=== PATIENT | female | born 1950 | race Caucasian/White ===

== ENCOUNTER 2016-09-01 16:26 | Observation (INO) | payer MEDICARE, OTHER ==
--- NOTE | 2016-09-01 16:56 | C.PDOC ---
History Of Present Illness 65 y/o female pmhx HTN sent by Dr. Jones for evaluation of high blood pressure. Pt saw Dr Jones today with complaints of left sided chest pressure and SOB. Pt blood pressure in office was 160/110, Robert sent patient to ED for further evaluation, requesting evaluation by Dr Whyte. Denies abdominal pain, weakness, numbness or any other complaints. Time Seen by Provider: 09/01/16 16:38 Chief Complaint (Nursing): Chest Pain History Per: Patient History/Exam Limitations: no limitations Onset/Duration Of Symptoms: Days Current Symptoms Are (Timing): Still Present Severity: Moderate Quality: Pressure Modifying Factors: None Alleviating Factors: None Recent travel outside of the [place]: No Past Medical History Reviewed: Historical Data, Nursing Documentation, Vital Signs Vital Signs: Last Vital Signs Temp 97.8 F 09/01/16 16:31 Pulse 66 09/01/16 18:27 Resp 18 09/01/16 18:27 BP 174/72 H 09/01/16 18:27 Pulse Ox 100 09/01/16 18:27 - Medical History PMH: Arthritis, HTN, Hyperlipidemia, Osteoporosis Surgical History: Appendectomy, Cholecystectomy Family History: States: Unknown Family Hx - Social History Hx Alcohol Use: No Hx Substance Use: No - Immunization History Hx Tetanus Toxoid Vaccination: No Hx Influenza Vaccination: No Hx Pneumococcal Vaccination: No Review Of Systems Except As Marked, All Systems Reviewed And Found Negative. Constitutional: Negative for: Fever, Chills Cardiovascular: Positive for: Chest Pain. Negative for: Palpitations Respiratory: Positive for: Shortness of Breath Gastrointestinal: Negative for: Vomiting, Abdominal Pain Neurological: Negative for: Weakness, Numbness Physical Exam - Physical Exam Appears: Non-toxic, No Acute Distress Skin: Warm, Dry, No Rash Head: Atraumatic, Normacephalic Chest: Symmetrical, No Tenderness Cardiovascular: Rhythm Regular, No Murmur Respiratory: Normal Breath Sounds, No Accessory Muscle Use, No Rales, No Rhonchi , No Wheezing Gastrointestinal/Abdominal: Normal Exam, Soft, No Tenderness Extremity: Normal ROM, No Pedal Edema Extremity: Bilateral: Atraumatic Pulses: Left Dorsalis Pedis: Normal, Right Dorsalis Pedis: Normal Neurological/Psych: Oriented x3, Normal Speech, Normal Cognition ED Course And Treatment - Laboratory Results Result Diagrams: 09/01/16 17:04 09/01/16 17:04 O2 Sat by Pulse Oximetry: 97 (room air) Pulse Ox Interpretation: Normal Medical Decision Making Medical Decision Making: Plan: labs, CXR, aspirin 6:19PM EKG shows NSR at 76bpm with left atrial enlargement. Cxray concerning for widened mediastinum. Trop x 1 negative. Presentation atypical for dissection but due to xray and elevated BP, will get CTA. On reevaluation, patient reports that she is now pain free and patient has equal pulses b/l. 7:00PM Will sign out to [place] to follow-up CT dissection study and reevaluate patient Disposition - Disposition Disposition: HOSPITALIZED Disposition Time: 18:33 Condition: FAIR - Clinical Impression Clinical Impression: Chest pain - Scribe Statement The provider has reviewed the documentation as recorded by the Melissa Vogt Provider Attestation: All medical record entries made by the Melissa were at my direction and personally dictated by me. I have reviewed the chart and agree that the record accurately reflects my personal performance of the history, physical exam, medical decision making, and the department course for this patient. I have also personally directed, reviewed, and agree with the discharge instructions and disposition.
[2016-09-01 17:09] LABS: BASO # 0.1 K/uL (0.0-0.2); EOS # 0.1 K/uL (0.0-0.7); EOS % 0.8 % (0.0-4.0); HEMATOCRIT 44.9 % (34.0-47.0); LYMPH # 3.2 K/uL (1.0-4.3); LYMPH % 39.4 % (20.0-40.0); MEAN CELL VOLUME 91.9 fL (81.0-99.0); MEAN CORPUSCULAR HEMOGLOBIN 30.9 pg (27.0-31.0); MEAN CORPUSCULAR HGB CONC 33.6 g/dL (33.0-37.0); MONO # 0.3 K/uL (0.0-0.8); MONO % 3.9 % (0.0-10.0); RED CELL DISTRIBUTION WIDTH 13.2 % (11.5-14.5); WHITE BLOOD COUNT 8.1 K/uL (4.8-10.8)
[2016-09-01 17:23] LABS: ALB/GLOB RATIO 1.3 (1.0-2.1); ALKALINE PHOSPHATASE 142 U/L (38-126); ALT/SGPT 33 U/L (9-52); AST/SGOT 23 U/L (14-36); BLOOD UREA NITROGEN 11 mg/dL (7-17); CALCIUM 10.1 mg/dl (8.6-10.4); CARBON DIOXIDE 25 mmol/L (22-30); GFR AFRICAN-AMERICAN > 60; GLUCOSE,RANDOM 94 mg/dL (65-105); TOTAL PROTEIN 7.8 g/dL (6.3-8.3)
[2016-09-01 17:32] LABS: CHLORIDE 98 mmol/L (98-107); POTASSIUM 4.1 mmol/L (3.6-5.2); SODIUM 140 mmol/L (132-148)
[2016-09-01] MEDS ORDERED: Iodixanol 320 MG/ML 100 ML BOTTLE IV ONE (18:31)
--- NOTE | 2016-09-01 19:19 | CT ---
EXAM: CT Chest Without and With Intravenous Contrast CT Abdomen and Pelvis Without and With Intravenous Contrast CLINICAL HISTORY: 65 years old, female; Pain; Other: Chest; Chest pain; Type not specified; Additional info: Eval for dissection, elevated BP, chest pain TECHNIQUE: Axial computed tomography images of the chest, abdomen and pelvis without and with intravenous contrast during the arterial phase of enhancement. This CT exam was performed using one or more of the following dose reduction techniques: automated exposure control, adjustment of the mA and/or kV according to patient size, and/or use of iterative reconstruction technique. Coronal and sagittal reformatted images were created and reviewed. CONTRAST: 50 mL of visipaque 320 administered intravenously. COMPARISON: No relevant prior studies available. FINDINGS: VASCULATURE: Aorta: No acute findings. No aortic aneurysm. No dissection. Pulmonary arteries: Unremarkable as visualized. No pulmonary embolism is identified. Great vessels of aortic arch: No acute findings. No dissection. No arterial occlusion or significant stenosis. Celiac trunk and mesenteric arteries: No acute findings. No occlusion or significant stenosis. Renal arteries: No acute findings. No occlusion or significant stenosis. Iliac arteries: No acute findings. No occlusion or significant stenosis. CHEST: Lungs: There is mild bronchiectasis in the right middle lobe. Pleural space: Unremarkable. No significant effusion. No pneumothorax. Heart: Unremarkable. No cardiomegaly. No significant pericardial effusion. Mediastinum: . There is a moderate to large paraesophageal hiatal hernia. ABDOMEN: Liver: There are numerous low density lesions are noted within the liver. The largest measures 1.1 cm in the right lobe near the dome the density measurement of 15 H. Gallbladder and bile ducts: Surgical clips are seen in the gallbladder fossa. No calcified stones. No ductal dilation. Pancreas: Unremarkable. No ductal dilation. No mass. Spleen: Unremarkable. No splenomegaly. Adrenals: Unremarkable. No mass. Kidneys and ureters: There are numerous (too many to count) low density lesions noted within both kidneys. No obstructing stones. No hydronephrosis. Stomach and bowel: Not seen as a separate structure. No inflammatory changes seen at the base of the cecum. No mucosal thickening. Appendix: No findings to suggest acute appendicitis. PELVIS: Bladder: Unremarkable. No stones. No mass. Reproductive: Unremarkable as visualized. CHEST, ABDOMEN and PELVIS: Intraperitoneal space: Unremarkable. No significant fluid collection. No free air. Bones/joints: There is a mild dextroscoliosis of the thoracic spine No acute fracture. No dislocation. Soft tissues: Unremarkable. Lymph nodes: Unremarkable. No enlarged lymph nodes. Other findings: IMPRESSION: 1. No acute findings. No aortic dissection. 2. Numerous low density lesions noted within the liver and kidneys. They're not all fully characterized due to the large number of small size. The largest appear to BE cysts. 3. Moderate to large paraesophageal hiatal hernia. 4. Mild bronchiectasis in the right middle lobe. EXAM: CT Abdomen and Pelvis With Intravenous Contrast CLINICAL HISTORY: 65 years old, female; Pain; Other: Chest; Chest pain; Type not specified; Additional info: Eval for dissection, elevated BP, chest pain TECHNIQUE: Axial computed tomography images of the abdomen and pelvis with intravenous contrast. This CT exam was performed using one or more of the following dose reduction techniques: automated exposure control, adjustment of the mA and/or kV according to patient size, and/or use of iterative reconstruction technique. Coronal and sagittal reformatted images were created and reviewed. CONTRAST: 50 mL of visipaque 320 administered intravenously. EXAM DATE/TIME: Exam ordered 09/01/2016 6:14 PM COMPARISON: CR - CHEST PORTABLE 09/01/2016 4:49:35 PM FINDINGS: Lower thorax: There is a moderate to large paraesophageal hiatal hernia ABDOMEN: Liver: There are numerous low density lesions are noted within the liver. The largest measures 1.1 cm in the right lobe near the dome the density measurement of 15 H. Gallbladder and bile ducts: Surgical clips are seen in the gallbladder fossa. The common bile that measures 8 mm. No calcified stones. No ductal dilation. Pancreas: Unremarkable. No mass. No ductal dilation. Spleen: Unremarkable. No splenomegaly. Adrenals: Unremarkable. No mass. Kidneys and ureters: There are numerous (too many to count) low density lesions noted within both kidneys. No hydronephrosis. Stomach and bowel: Unremarkable. No obstruction. No mucosal thickening. Appendix: Not seen a separate structure. No inflammatory changes at the base of cecum. PELVIS: Bladder: Unremarkable. No mass. Reproductive: The uterus is absent. The ovaries are not seen as separate structures. ABDOMEN and PELVIS: Intraperitoneal space: Unremarkable. No free air. No significant fluid collection. Bones/joints: An area of sclerosis in the right ilium is noted.. No dislocation. Soft tissues: Unremarkable. Vasculature: Unremarkable. No abdominal aortic aneurysm. Lymph nodes: Unremarkable. No enlarged lymph nodes. IMPRESSION: 1. No acute findings. No aortic dissection. 2. Moderate to large paraesophageal hiatal hernia 3. Numerous low-density lesions within the liver and kidneys. They're not all fully characterized due to their small size and large number. The largest appear to BE cysts. 4. 1 cm sclerotic lesion noted within the right ilium. The appearance is nonspecific. Comparison with CT from 03/23/2014 would be helpful. Was not available at the time the study was interpreted.
[2016-09-02] MEDS: Pantoprazole 40 mg EC Tab PO SCH (09:12)
[2016-09-02] MEDS: Enoxaparin 40 mg Syringe SC SCH (09:13)
--- NOTE | 2016-09-02 09:17 | RAD ---
HISTORY: chest pain COMPARISON: No prior. FINDINGS: LUNGS: The lungs are well inflated and clear. PLEURA: No significant pleural effusion identified, no pneumothorax apparent. CARDIOVASCULAR: Normal. OSSEOUS STRUCTURES: No significant abnormalities. VISUALIZED UPPER ABDOMEN: Normal. OTHER FINDINGS: None. IMPRESSION: No active pulmonary disease.
--- NOTE | 2016-09-02 10:28 | CP.PCM.CON ---
<Toi Foreman - Last Filed: 09/02/16 10:31> History of Present Illness - History of Present Illness History of Present Illness: Cardiology consult note Attending: Dr. Whyte This is a 65 yo female with past medical hx of HTN, HLD, arthritis, osteoporosis , gout presenting with chief complaint high blood pressure/chest pain. Pt states she was seeing her PMD Dr. Naranjo this past wednesday. Her BP at his office was noted to be 200/100. She says she was told to go see Dr. Jones, her packager, on wednesday. She went to see Dr. Jones and again was noted to have high blood pressure, this time systolic in the 160s. Her son was with her and took her to [facility]. She also reports substernal chest pain x2 days. It sometimes radiates to left arm. It is a pressure sensation. It comes and goes. She says she has it currently at a mild level. She says she has never had this before. When asked what medications she takes, she did not know any of the names. She says she relies on her daughter to give her the medications and she will sometimes miss doses. No fevers, chills, vomiting, diarrhea, sob, syncope. PMH: HTN, HLD, arthritis, osteoporosis, gout PSH: appendectomy, cholecystectomy, removal of tumor from left shoulder Allergies: NKDA FH: Grandfather and grandmother with [place] Social hx: No smoking, drinking, or drug use. Born in [place]. Review of Systems - Review of Systems All systems: reviewed and no additional remarkable complaints except Review of Systems: negative except per HPI. Past Patient History - Infectious Disease Hx of Infectious Diseases: None - Tetanus Immunizations Tetanus Immunization: Unknown - Past Medical History & Family History Past Medical History?: Yes - Past Social History Smoking Status: Never Smoked Chewing Tobacco Use: No Cigar Use: No Alcohol: None Drugs: Denies Home Situation {Lives}: With Family Domestic Violence: Negative - CARDIAC Hx Cardiac Disorders: Yes Hx Angina: No Hx Atrial Fibrillation: No Hx Cardia Arrhythmia: No Hx Circulatory Problems: No Hx Congestive Heart Failure: No Hx Heart Attack: No Hx Heart Murmur: No Hx Heart Transplant: No Hx Hypercholesterolemia: No Hx Hypertension: Yes Hx Hypotension: No Hx Internal Defibrillator: No Hx Mitral Valve Prolapse: No Hx Pacemaker: No Hx Peripheral Edema: No Hx Peripheral Vascular Disease: No - PULMONARY Hx Respiratory Disorders: No - NEUROLOGICAL Hx Neurological Disorder: No - HEENT Hx HEENT Problems: No - RENAL Hx Chronic Kidney Disease: No - ENDOCRINE/METABOLIC Hx Endocrine Disorders: No - HEMATOLOGICAL/ONCOLOGICAL Hx Blood Disorders: No - INTEGUMENTARY Hx Dermatological Problems: No - MUSCULOSKELETAL/RHEUMATOLOGICAL Hx Falls: No - GASTROINTESTINAL Hx Gastrointestinal Disorders: Yes Hx Bowel Surgery: No Hx Clostridium Difficile: No Hx Colitis: No Hx Colostomy: No Hx Constipation: No Hx Crohn's Disease: No Hx Diarrhea: No Hx Diverticulitis: No Hx Esophageal Varices: No Hx Fatty Liver Disease: No Hx Gall Bladder Disease: Yes Hx Gastritis: No Hx Gastroesophageal Reflux: No Hx Hemorrhoids: No Hx Ileostomy: No Hx Irritable Bowel: No Hx Liver Failure: No Hx Nausea: No Hx Pancreatitis: No HX Swallowing Problems: No Hx Ulcer: No Hx Vomiting: No - GENITOURINARY/GYNECOLOGICAL Hx Genitourinary Disorders: No - PSYCHIATRIC Hx Substance Use: No - SURGICAL HISTORY Hx Surgeries: Yes Hx Abdominal Aortic Aneurysm Repair: No Hx Amputation: No Hx Angiogram: No Hx Angioplasty: No Hx Appendectomy: Yes Hx Arteriovenous Shunt: No Hx Arthroscopy: No Hx Bile Duct Stent: No Hx Breast Biopsy: No Hx Cataract Extraction: No Hx Cardiac Catheterization: No Hx Carotid Endarterectomy: No Hx Section: No Hx Cholecystectomy: Yes Hx Coronary Artery Bypass Graft: No Hx Coronary Stent: No Hx Dilation and Curettage: No Hx Eye Surgery: No Hx Femoral-Popliteal Bypass Graft: No Hx Gastric Bypass Surgery: No Hx Herniorrhaphy: No Hx Hysterectomy: No Hx Joint Replacement: No Hx Kidney Transplant: No Hx Liver Transplant: No Hx Mastectomy: No Hx Musculoskeletal Surgery: No Hx Open Heart Surgery: No Hx Open Reduction Internal Fixation: No Hx Orthopedic Surgery: No Hx Parathyroidectomy: No Hx Penile Implant: No Hx Pulmonary Surgery: No Hx Splenectomy: No Hx Thyroidectomy: No Hx Tonsillectomy: No Hx Tubal Ligation: No Hx Valve Replacement: No Hx Vascular Surgery: No Hx Vascular Access Device: No - ANESTHESIA Hx Anesthesia: Yes Hx Anesthesia Reactions: No Hx Malignant Hyperthermia: No Has any member of the family had a problem w/ anesthesia?: No Meds Allergies/Adverse Reactions: Allergies Allergy/AdvReac Type Severity Reaction Status Date / Time No Known Allergies Allergy Verified 09/01/16 16:33 - Medications Medications: Current Medications Amlodipine Besylate (Norvasc) 5 mg PO DAILY [facility] Last Admin: 09/02/16 09:12 Dose: 5 mg Aspirin (Aspirin) 81 mg PO DAILY [facility] Enoxaparin Sodium (Lovenox) 40 mg SC DAILY [facility] Last Admin: 09/02/16 09:13 Dose: 40 mg Metoprolol Tartrate (Lopressor) 50 mg PO Q12 [facility] Last Admin: 09/02/16 09:12 Dose: 50 mg Pantoprazole Sodium (Protonix Ec Tab) 40 mg PO DAILY [facility] Last Admin: 09/02/16 09:12 Dose: 40 mg Rosuvastatin Calcium (Crestor) 40 mg PO [facility] Physical Exam - Constitutional Appears: Non-toxic, No Acute Distress - Head Exam Head Exam: ATRAUMATIC, NORMAL INSPECTION, NORMOCEPHALIC - Eye Exam Eye Exam: EOMI - ENT Exam ENT Exam: Mucous Membranes Moist - Neck Exam Neck exam: Positive for: Full Rom, Normal Inspection - Respiratory Exam Respiratory Exam: Chest Wall Tenderness, NORMAL BREATHING PATTERN. absent: Respiratory Distress - Cardiovascular Exam Cardiovascular Exam: +S1, +S2 - GI/Abdominal Exam GI & Abdominal Exam: Normal Bowel Sounds, Soft. absent: Tenderness - Extremities Exam Extremities exam: Positive for: full ROM, normal inspection - Back Exam Back exam: NORMAL INSPECTION - Neurological Exam Neurological exam: Alert, Oriented x3 - Psychiatric Exam Psychiatric exam: Normal Affect, Normal Mood - Skin Skin Exam: Dry, Intact, Normal Color, Warm Results - Vital Signs Recent Vital Signs: Last Vital Signs Temp 97.7 F 09/02/16 07:53 Pulse 64 09/02/16 07:53 Resp 18 09/02/16 07:53 BP 129/79 09/02/16 07:53 Pulse Ox 97 09/02/16 07:53 - Labs Result Diagrams: 09/01/16 17:04 09/01/16 17:04 Labs: Laboratory Results - last 24 hr 09/02/16 09/02/16 00:38 06:35 Total Creatine Kinase 71 64 CK-MB (Mass) 1.79 1.52 Troponin I, Quant < 0.0120 < 0.0120 Assessment & Plan - Assessment and Plan (Free Text) Assessment: This is a 65 yo female with past medical hx of HTN, HLD, arthritis, osteoporosis , gout presenting with HTN and chest pain. A/P -asa 81 mg po daily -amlodopine 5 mg po daily -lovenox 40 daily -lopressor 50 q 12 -protonix 40 daily -crestor 40 po hs -trops negative x 3 -initial ekg was NSR at 76 bpm -CXR- wide mediastinum -CT angio negative for dissection -ekg this morning sinus stephanie at 59 -bp well controlled today -continue current management discussed with Dr. Whyte <Bertha Whyte - Last Filed: 09/11/16 12:52> Results - Vital Signs Recent Vital Signs: Last Vital Signs Temp 98.0 F 09/03/16 07:30 Pulse 62 09/03/16 07:30 Resp 18 09/03/16 07:30 BP 109/66 09/03/16 07:30 Pulse Ox 97 09/03/16 07:30 - Labs Result Diagrams: 09/01/16 17:04 09/01/16 17:04 Attending/Attestation - Attestation I have personally seen and examined this patient.: Yes I have fully participated in the care of the patient.: Yes I have reviewed all pertinent clinical information: Yes Notes (Text): 09/11/16 12:51 will get fire dispatcher to see how pt is taking meds. Meds responding to bp in hospital
--- NOTE | 2016-09-02 13:09 | CP.PCM.HP ---
History of Present Illness - History of Present Illness History of Present Illness: This is a 65 yo female with past medical hx of HTN, HLD, arthritis, osteoporosis , gout presenting with chief complaint high blood pressure/chest pain. Pt states she was seeing her PMD Dr. Naranjo this past wednesday. Her BP at his office was noted to be 200/100. She says she was told to go see Dr. Jones, her sas programmer, on wednesday. She went to see Dr. Jones and again was noted to have high blood pressure, this time systolic in the 160s. Her son was with her and took her to [facility]. She also reports substernal chest pain x2 days. It sometimes radiates to left arm. It is a pressure sensation. It comes and goes. She says she has it currently at a mild level. She says she has never had this before. When asked what medications she takes, she did not know any of the names. She says she relies on her daughter to give her the medications and she will sometimes miss doses. No fevers, chills, vomiting, diarrhea, sob, syncope. Present on Admission - Present on Admission Any Indicators Present on Admission: No History of DVT/PE: No History of Uncontrolled Diabetes: No Urinary Catheter: No Decubitus Ulcer Present: No Review of Systems - Review of Systems All systems: reviewed and no additional remarkable complaints except (As mentioned in HPI) Past Patient History - Infectious Disease Hx of Infectious Diseases: None - Tetanus Immunizations Tetanus Immunization: Unknown - Past Medical History & Family History Past Medical History?: Yes - Past Social History Smoking Status: Never Smoked Chewing Tobacco Use: No Cigar Use: No Alcohol: None Drugs: Denies Home Situation {Lives}: With Family Domestic Violence: Negative - CARDIAC Hx Cardiac Disorders: Yes Hx Angina: No Hx Atrial Fibrillation: No Hx Cardia Arrhythmia: No Hx Circulatory Problems: No Hx Congestive Heart Failure: No Hx Heart Attack: No Hx Heart Murmur: No Hx Heart Transplant: No Hx Hypercholesterolemia: No Hx Hypertension: Yes Hx Hypotension: No Hx Internal Defibrillator: No Hx Mitral Valve Prolapse: No Hx Pacemaker: No Hx Peripheral Edema: No Hx Peripheral Vascular Disease: No - PULMONARY Hx Respiratory Disorders: No - NEUROLOGICAL Hx Neurological Disorder: No - HEENT Hx HEENT Problems: No - RENAL Hx Chronic Kidney Disease: No - ENDOCRINE/METABOLIC Hx Endocrine Disorders: No - HEMATOLOGICAL/ONCOLOGICAL Hx Blood Disorders: No - INTEGUMENTARY Hx Dermatological Problems: No - MUSCULOSKELETAL/RHEUMATOLOGICAL Hx Falls: No - GASTROINTESTINAL Hx Gastrointestinal Disorders: Yes Hx Bowel Surgery: No Hx Clostridium Difficile: No Hx Colitis: No Hx Colostomy: No Hx Constipation: No Hx Crohn's Disease: No Hx Diarrhea: No Hx Diverticulitis: No Hx Esophageal Varices: No Hx Fatty Liver Disease: No Hx Gall Bladder Disease: Yes Hx Gastritis: No Hx Gastroesophageal Reflux: No Hx Hemorrhoids: No Hx Ileostomy: No Hx Irritable Bowel: No Hx Liver Failure: No Hx Nausea: No Hx Pancreatitis: No HX Swallowing Problems: No Hx Ulcer: No Hx Vomiting: No - GENITOURINARY/GYNECOLOGICAL Hx Genitourinary Disorders: No - PSYCHIATRIC Hx Substance Use: No - SURGICAL HISTORY Hx Surgeries: Yes Hx Abdominal Aortic Aneurysm Repair: No Hx Amputation: No Hx Angiogram: No Hx Angioplasty: No Hx Appendectomy: Yes Hx Arteriovenous Shunt: No Hx Arthroscopy: No Hx Bile Duct Stent: No Hx Breast Biopsy: No Hx Cataract Extraction: No Hx Cardiac Catheterization: No Hx Carotid Endarterectomy: No Hx Section: No Hx Cholecystectomy: Yes Hx Coronary Artery Bypass Graft: No Hx Coronary Stent: No Hx Dilation and Curettage: No Hx Eye Surgery: No Hx Femoral-Popliteal Bypass Graft: No Hx Gastric Bypass Surgery: No Hx Herniorrhaphy: No Hx Hysterectomy: No Hx Joint Replacement: No Hx Kidney Transplant: No Hx Liver Transplant: No Hx Mastectomy: No Hx Musculoskeletal Surgery: No Hx Open Heart Surgery: No Hx Open Reduction Internal Fixation: No Hx Orthopedic Surgery: No Hx Parathyroidectomy: No Hx Penile Implant: No Hx Pulmonary Surgery: No Hx Splenectomy: No Hx Thyroidectomy: No Hx Tonsillectomy: No Hx Tubal Ligation: No Hx Valve Replacement: No Hx Vascular Surgery: No Hx Vascular Access Device: No - ANESTHESIA Hx Anesthesia: Yes Hx Anesthesia Reactions: No Hx Malignant Hyperthermia: No Has any member of the family had a problem w/ anesthesia?: No Meds Allergies/Adverse Reactions: Allergies Allergy/AdvReac Type Severity Reaction Status Date / Time No Known Allergies Allergy Verified 09/01/16 16:33 Physical Exam - Eye Exam Eye Exam: Normal appearance - ENT Exam ENT Exam: Mucous Membranes Moist - Respiratory Exam Respiratory Exam: Clear to Auscultation Bilateral - Cardiovascular Exam Cardiovascular Exam: REGULAR RHYTHM, +S1, +S2 - GI/Abdominal Exam GI & Abdominal Exam: Normal Bowel Sounds, Soft - Extremities Exam Extremities exam: Positive for: normal inspection Results - Vital Signs Recent Vital Signs: Last Vital Signs Temp 97.7 F 09/02/16 07:53 Pulse 64 09/02/16 07:53 Resp 18 09/02/16 07:53 BP 129/79 09/02/16 07:53 Pulse Ox 97 09/02/16 07:53 - Labs Result Diagrams: 09/01/16 17:04 09/01/16 17:04 Labs: Laboratory Results - last 24 hr 09/02/16 09/02/16 00:38 06:35 Total Creatine Kinase 71 64 CK-MB (Mass) 1.79 1.52 Troponin I, Quant < 0.0120 < 0.0120 Assessment & Plan - Assessment and Plan (Free Text) Assessment: Hypertensive urgency Chest pain Asthma Admit to telemetry Lopressor 50 mg p.o. every 12 hours Norvasc 5 mg daily Cardiology consult appreciated Cardiac enzymes 3 sets DC planning once cleared by cardiology We will follow patient in office for asthma DVT GI prophylaxis
[2016-09-03 08:47] VITALS: BP 109/66; PULSE 62; RESP 18; TEMP 98; O2SAT 97
[2016-09-03] MEDS: Pantoprazole 40 mg EC Tab PO SCH (09:42)
[2016-09-03] MEDS: Enoxaparin 40 mg Syringe SC SCH (09:43)
--- NOTE | 2016-09-03 12:46 | CP.PCM.PN ---
Subjective - Date & Time of Evaluation Date of Evaluation: 09/03/16 Time of Evaluation: 12:46 - Subjective Subjective: PT CLEARED FOR D/C BY DR. CANSECO. ALL D/C INSTRUCTIONS DISCUSSED AT LENGTH WITH THE PT. ALL MEDS DISCUSSED WITH THE PT. PT TO F/U WITH DR. CANSECO AND DR. ARMIJO. NO FURTHER ORDERS. Objective - Vital Signs/Intake and Output Vital Signs (last 24 hours): Temp Pulse Resp BP Pulse Ox 98.0 F 62 18 109/66 97 09/03/16 07:30 09/03/16 07:30 09/03/16 07:30 09/03/16 07:30 09/03/16 07:30 - Medications Medications: Current Medications Amlodipine Besylate (Norvasc) 5 mg PO DAILY [facility] Last Admin: 09/03/16 09:42 Dose: 5 mg Aspirin (Aspirin) 81 mg PO DAILY [facility] Last Admin: 09/03/16 09:44 Dose: 81 mg Enoxaparin Sodium (Lovenox) 40 mg SC DAILY [facility] Last Admin: 09/03/16 09:43 Dose: 40 mg Metoprolol Tartrate (Lopressor) 50 mg PO Q12 [facility] Last Admin: 09/03/16 09:43 Dose: 50 mg Pantoprazole Sodium (Protonix Ec Tab) 40 mg PO DAILY [facility] Last Admin: 09/03/16 09:42 Dose: 40 mg Rosuvastatin Calcium (Crestor) 40 mg PO HS [facility] Last Admin: 09/02/16 21:23 Dose: 40 mg - Labs Labs: PT 11.6 SECONDS (9.7-12.2) 09/01/16 17:04 INR 1.0 09/01/16 17:04 APTT 36 SECONDS (21-34) H 09/01/16 17:04
--- NOTE | 2016-09-03 15:26 | CP.PCM.PN ---
<Toi Foreman - Last Filed: 09/03/16 15:23> Subjective - Date & Time of Evaluation Date of Evaluation: 09/03/16 Time of Evaluation: 15:20 - Subjective Subjective: Cardiology progress note. Attending: Dr. Whyte Pt seen and examined at bedside. No acute distress. No events overnight. BP much better controlled. No fevers, chills, chest pain, sob, vomiting, diarrhea. Objective - Vital Signs/Intake and Output Vital Signs (last 24 hours): Temp Pulse Resp BP Pulse Ox 98.0 F 62 18 109/66 97 09/03/16 07:30 09/03/16 07:30 09/03/16 07:30 09/03/16 07:30 09/03/16 07:30 - Labs Labs: PT 11.6 SECONDS (9.7-12.2) 09/01/16 17:04 INR 1.0 09/01/16 17:04 APTT 36 SECONDS (21-34) H 09/01/16 17:04 - Constitutional Appears: Non-toxic, No Acute Distress - Head Exam Head Exam: ATRAUMATIC, NORMAL INSPECTION, NORMOCEPHALIC - Eye Exam Eye Exam: EOMI - ENT Exam ENT Exam: Mucous Membranes Moist - Neck Exam Neck Exam: Full ROM, Normal Inspection - Respiratory Exam Respiratory Exam: NORMAL BREATHING PATTERN. absent: Respiratory Distress - Cardiovascular Exam Cardiovascular Exam: +S1, +S2 - GI/Abdominal Exam GI & Abdominal Exam: Soft, Normal Bowel Sounds. absent: Tenderness - Extremities Exam Extremities Exam: Full ROM, Normal Inspection - Back Exam Back Exam: NORMAL INSPECTION - Neurological Exam Neurological Exam: Alert, Awake, Oriented x3 - Psychiatric Exam Psychiatric exam: Normal Affect, Normal Mood - Skin Skin Exam: Dry, Intact, Normal Color, Warm <Bertha Whyte - Last Filed: 09/11/16 12:51> Objective - Vital Signs/Intake and Output Vital Signs (last 24 hours): Temp Pulse Resp BP Pulse Ox 98.0 F 62 18 109/66 97 09/03/16 07:30 09/03/16 07:30 09/03/16 07:30 09/03/16 07:30 09/03/16 07:30 - Labs Labs: PT 11.6 SECONDS (9.7-12.2) 09/01/16 17:04 INR 1.0 09/01/16 17:04 APTT 36 SECONDS (21-34) H 09/01/16 17:04 Attending/Attestation - Attestation I have personally seen and examined this patient.: Yes I have fully participated in the care of the patient.: Yes I have reviewed all pertinent clinical information, including history, physical exam and plan: Yes Notes (Text): 09/11/16 12:50 Pt agrees to Norvasc and metoprolol throughtranslator we were able to straighten out meds all in agreement
--- NOTE | 2016-09-04 12:47 | CARD ---
APPROVED REPORT EKG Measurement Heart [id number] ID [id number] <Conclusion> Normal sinus rhythm Possible Left atrial enlargement Borderline ECG
--- NOTE | 2016-09-11 19:40 | CARD ---
APPROVED REPORT EKG Measurement Heart [id number] <Conclusion> Sinus bradycardia Otherwise normal ECG
--- NOTE | 2016-09-14 13:17 | CARD ---
APPROVED REPORT EKG Measurement Heart [id number] <Conclusion> Normal sinus rhythm Normal ECG
== END 2016-09-03 13:36 | disposition home or self-care (01) ==
LOC: C.ER 16:26 → C.9E 19:51 → C.6T 21:38
PROVIDERS: ADMIT Internal Medicine; ATTEND Internal Medicine
DX: R07.2 Precordial pain (principal); I16.0 Hypertensive urgency; E78.5 Hyperlipidemia, unspecified; J45.909 Unspecified asthma, uncomplicated; M10.9 Gout, unspecified
CPT/HCPCS: 36415; 71010; 71275; 74175; 80053; 82550; 82553; 83880; 84484; 85025; 85610; 85730; 99285; G0378; J1650; Q9967